=== PATIENT | female | born 2000 | race Caucasian/White ===

== ENCOUNTER 2018-01-15 17:25 | Outpatient (CLI) | payer MEDICAID, SELFPAY ==
[2018-01-15 18:00] VITALS: BMI 25.9
[2018-01-15 18:07] LABS: Bacteria 0 SEEN /hpf (None Seen); Mucous, Urine 0 SEEN /hpf (<or=2+)
[2018-01-15 18:11] LABS: Color, Urine Yellow (Yellow); Glucose, Dipstick Normal (Normal); Ketone-Dipstick Negative (Negative); Leukocyte Esterase-Dipstick 500 /ul (Negative); Nitrite-Dipstick Negative (Negative); Occult Blood-Urine 10 /ul (Negative); Protein-Dipstick Negative (Negative); Specific Gravity, Urine 1.015 (1.002-1.030); Urine Bilirubin Dipstick Negative (Negative); Urine Clarity Clear (Clear); Urine Urobilinogen Normal (Normal)
[2018-01-15 18:17] LABS: White Blood Cells 5-10 SEEN /hpf (0-5)
[2018-01-15 18:18] LABS: Red Blood Cells-Urine 0 SEEN /hpf (0-5); Squamous Epithelial Cells - UA 0-5 SEEN /hpf (5-10)
[2018-01-15] MEDS: Lactated Ringers 1,000 ML 999 ML IV (18:40)
[2018-01-15 20:12] LABS: Hematocrit 33.2 % (37-47); Hemoglobin 10.7 g/dl (12.0-15.0); Mean Corp Hgb Conc 32.2 g/gl (32-36); Mean Platelet Vol. 11.5 fl (6.2-12.0); Platelet Count 265 K/mm3 (150-450); RBC Distribution Width CV 12.5 % (11.6-14.6); RBC Distribution Width SD 40.5 fl (35.1-43.9); Red Blood Count 3.69 M/mm3 (4.2-5.4); White Blood Count 14.2 K/mm3 (4.4-11.0)
[2018-01-15 20:13] LABS: Scan Indicated on CBC? Y/N NO
[2018-01-15] MEDS: Betamethasone/Betamethasone 30 MG/5 ML Vial 12 MG IM (20:22)
[2018-01-15] MEDS: Lactated Ringers 1,000 ML 50 ML IV (23:44)
[2018-01-16] MEDS: Clindamycin 900 MG/50 ML BAG 75 MG IV (01:25)
--- NOTE | 2018-01-16 07:32 | PCM.PN.OB ---
Subjective: Contractions less strong and much less frequent today. Objective: Afeb VSS - Physical Exam General: Alert, Oriented x3, Cooperative, No apparent distress Lungs: Clear to auscultation, Normal air movement Cardiovascular: Regular rate, Regular Rhythm Abdomen: Soft, Non Tender, Non-Distended, Gravid, Appropriate for Gestational Age Extremities: No edema Skin: No rashes Neurological: Neuro grossly intact Psych/Mental Status: Normal Affect Comment: CE 3 cm unchanged Weight: 142 lb 3.17 oz Body Mass Index (BMI) 25.9 Laboratory Tests Past 24 Hrs 01/15/18 01/15/18 01/15/18 18:00 18:40 18:40 WBC 14.2 H RBC 3.69 L Hgb 10.7 L Hct 33.2 L MCV 90.0 MCH 29.0 MCHC 32.2 RDW 12.5 RDW Differential 40.5 Plt Count 265 MPV 11.5 Urine Color Yellow Urine Clarity Clear Urine pH 6.0 Ur Specific [place] 1.015 Urine Protein Negative Urine Glucose (UA) Normal Urine Ketones Negative Urine Occult Blood 10 H Urine Nitrite Negative Urine Bilirubin Negative Urine Urobilinogen Normal Ur Leukocyte Esterase 500 H Urine RBC 0 SEEN Urine WBC 5-10 SEEN Ur Squamous Epith Cells 0-5 SEEN Urine Bacteria 0 SEEN Urine Mucus 0 SEEN Group B Strep DNA Specimen Comment Blood Type A POSITIVE Antibody Screen NEGATIVE 01/15/18 20:10 WBC RBC Hgb Hct MCV MCH MCHC RDW RDW Differential Plt Count MPV Urine Color Urine Clarity Urine pH Ur Specific [place] Urine Protein Urine Glucose (UA) Urine Ketones Urine Occult Blood Urine Nitrite Urine Bilirubin Urine Urobilinogen Ur Leukocyte Esterase Urine RBC Urine WBC Ur Squamous Epith Cells Urine Bacteria Urine Mucus Group B Strep DNA Cancelled Specimen Comment Cancelled Blood Type Antibody Screen Assessment/Plan Was given celestone last night. No change in cervical exam overnight. Will discharge home today and have return for celestone injection tonight or will return if labor symptoms increase.
--- NOTE | 2018-01-16 07:52 | OB.TRI.NOTE ---
History of Present Illness Date of Service: 01/16/18 Was patient seen by the physician?: Yes Reason For Visit: LABOR AND DELIVERY Date of Service: 01/16/18 Final SHUBHAM: 02/18/18 Gestational age: 35 Weeks and 2 Days History of Present Illness: Contractions. Home Medications Medication Instructions Recorded Ferrous Sulfate [Ferrous Sulfate] 1 tab PO BID 04/11/15 Ferrous Sulfate 325 mg PO BIDCM #60 tablet 04/14/15 Allergies amoxicillin [Amoxicillin] Allergy (Verified 04/11/15 23:19) Hives cephalexin Allergy (Verified 01/15/18 18:11) Hives Penicillins Allergy (Verified 04/11/15 23:19) Hives Physical Exam General: Alert, Oriented x3, Cooperative, No apparent distress Cardiovascular: Regular rate, Regular Rhythm Lungs: Clear to auscultation, Normal air movement Abdomen: Soft, Non Tender, Non-Distended, Gravid, Appropriate for Gestational Age Extremities:: No edema Estimated gestational size: Appropriate for gestational size Presentation: Cephalic Cervix Dilation (cm): 3 Station: -2 Effacement (%): 50 NST - FHR Rate Baby A Baseline: 130s Variability:: Moderate Accelerations:: 15 x 15 Decelerations:: None NST Reactive:: Yes, Appropriate for gestational age FHR Category:: Category I Uterine Activity:: now q 10-12 minutes Impression/Plan Admitted for r/o PTL. No signs of SROM. Cervix initially changed but no private branch exchange service adviser the last 12 hours. Given celestone IM as precaution. Discharged home with precautions. [facility]
== END 2018-01-16 07:35 | disposition home or self-care (01) ==
LOC: WPOUT 17:34 → WP 17:34
PROVIDERS: Family Provider Student in an Organized Health Care Education/Training Program; PCP Student in an Organized Health Care Education/Training Program; Visit Provider Obstetrics & Gynecology
DX: Z34.93 Encounter for supervision of normal pregnancy, unspecified, third trimester (principal); Z3A.35 35 weeks gestation of pregnancy
CPT/HCPCS: 96360; 96361 ×4; 36415; 59025; 59050; 81001; 85027; 86850; 86900; 96372; 99218; J7120; G0378; J0702

== ENCOUNTER 2018-01-16 20:05 | Outpatient (CLI) | payer OTHER, BC, SELFPAY ==
[2018-01-16 20:13] VITALS: BMI 26.6
[2018-01-16] MEDS: Betamethasone/Betamethasone 30 MG/5 ML Vial 12.5 MG IM (20:25)
--- NOTE | 2018-02-02 08:06 | OB.TRI.NOTE ---
History of Present Illness Date of Service: 01/16/18 Was patient seen by the physician?: No Reason For Visit: CELESTONE SHOT Date of Service: 01/16/18 Final SHUBHAM: 02/17/18 Gestational age: 37 Weeks and 6 Days History of Present Illness: On date of service was [id number] Home Medications Medication Instructions Recorded Ferrous Sulfate [Ferrous Sulfate] 1 tab PO BID 04/11/15 Ferrous Sulfate 325 mg PO BIDCM #60 tablet 04/14/15 Allergies amoxicillin [Amoxicillin] Allergy (Verified 01/16/18 20:17) Hives cephalexin Allergy (Verified 01/16/18 20:17) Hives Penicillins Allergy (Verified 01/16/18 20:17) Hives Physical Exam General: Alert, Oriented x3, Cooperative, No apparent distress Cardiovascular: Regular rate, Regular Rhythm Lungs: Clear to auscultation, Normal air movement Abdomen: Soft, Non Tender, Non-Distended, Gravid, Appropriate for Gestational Age Extremities:: No edema Estimated gestational size: Appropriate for gestational size Presentation: Cephalic Cervix Dilation (cm): 2 NST - FHR Rate Baby A Baseline: 140s Variability:: Moderate Accelerations:: 15 x 15 Decelerations:: None NST Reactive:: Yes FHR Category:: Category I Impression/Plan Admitted for second celestone injection to promote lung majority in patient at risk for delivery.
== END 2018-01-16 20:40 | disposition home or self-care (01) ==
LOC: WPOUT 20:10 → WP 20:11
PROVIDERS: Family Provider Student in an Organized Health Care Education/Training Program; PCP Student in an Organized Health Care Education/Training Program; Visit Provider Obstetrics & Gynecology
DX: Z34.93 Encounter for supervision of normal pregnancy, unspecified, third trimester (principal); Z3A.35 35 weeks gestation of pregnancy
CPT/HCPCS: 96372; 99218; G0378; J0702

== ENCOUNTER → 2018-01-20 16:05 | Outpatient (CLI) | payer OTHER, BC, MEDICAID, SELFPAY ==
[2018-01-20 18:18] LABS: Group B Strep DNA By PCR Negative (Negative); Internal Control PASS; Probe Check PASS; Specimen Processing Control PASS
== END ==
PROVIDERS: Visit Provider Obstetrics & Gynecology
DX: Z36.85 Encounter for antenatal screening for Streptococcus B (principal)
CPT/HCPCS: 87081; 87653

== ENCOUNTER 2018-02-06 08:30 | Inpatient (IN) | payer OTHER, BC, MEDICAID, SELFPAY ==
[2018-02-06 07:50] VITALS: BMI 27.0
--- NOTE | 2018-02-06 08:19 | NURSING ---
patient planning to pump exclusively states she would attempt to latch him the first couple days if comfortable
[2018-02-06] MEDS: Lactated Ringers 1,000 ML 50 ML IV ×2 (08:55→09:50)
[2018-02-06 09:16] LABS: Hematocrit 33.7 % (37-47); Hemoglobin 10.8 g/dl (12.0-15.0); Mean Corpuscular Hgb 28.3 pg (27.0-32.0); Mean Corpuscular Volume 88.2 fL (81-99); Platelet Count 240 K/mm3 (150-450); RBC Distribution Width CV 12.8 % (11.6-14.6); RBC Distribution Width SD 41.3 fl (35.1-43.9); Red Blood Count 3.82 M/mm3 (4.2-5.4); White Blood Count 13.8 K/mm3 (4.4-11.0)
[2018-02-06 09:20] LABS: Scan Indicated on CBC? Y/N NO
[2018-02-06] MEDS: Oxytocin 30 units/NS 500 ml 30 UNITS/500 ML IV.SOLN 334 UNITS IV (15:05)
[2018-02-06] MEDS: Oxytocin 30 units/NS 500 ml 30 UNITS/500 ML IV.SOLN 167 UNITS IV (15:35)
[2018-02-06 17:47] VITALS: BP 107/60; PULSE 94; RESP 20; TEMP 36.3
--- NOTE | 2018-02-06 17:52 | PCM.OB.VAG ---
Vaginal Delivery Maternal Presentation: Active Labor Amniotic Membrane Rupture Type: Artificial Amniotic Fluid Description: Clear Final SHUBHAM: 02/17/18 Final SHUBHAM Source: US <20 weeks Gestational age: 38 Weeks and 3 Days Date of Procedure: 02/06/18 Pre-Operative Diagnosis: IUP Post-Operative Diagnosis: IUP Surgery/ Procedure Performed: Spontaneous Vaginal Delivery Type of Anesthesia: Epidural Description of Procedure: Spontaneous vaginal delivery of a viable female infant with Apgars of 8/9 and an occiput anterior presentation with clear amniotic fluid and normal three-vessel placenta. No episiotomy. Second-degree midline laceration repaired in layers with 3-0 Rapide suture under epidural. Sponge counts okay. Delivery physician: Pito Chaves MD. Presentation: Vertex Placental Delivery Description: Spontaneous Placenta Disposition: [facility] Cord Vessel Description: 3 Vessels Cord Gases drawn per routine: ABG Cord Entanglement: None Estimated Blood Loss: 250 cc A gender: Female (1 minute): 8 (5 minute): 9 Episiotomy Description: None Laceration: Midline, Perineal Extension/lac, 2nd degree Medications given after delivery: IV Pitocin Complications: None
--- NOTE | 2018-02-06 17:55 | OP.PCM_ITS ---
Vaginal Delivery Maternal Presentation: Active Labor Amniotic Membrane Rupture Type: Artificial Amniotic Fluid Description: Clear Final SHUBHAM: 02/17/18 Final SHUBHAM Source: US <20 weeks Gestational age: 38 Weeks and 3 Days Date of Procedure: 02/06/18 Pre-Operative Diagnosis: IUP Post-Operative Diagnosis: IUP Surgery/ Procedure Performed: Spontaneous Vaginal Delivery Type of Anesthesia: Epidural Description of Procedure: Spontaneous vaginal delivery of a viable female infant with Apgars of 8/9 and an occiput anterior presentation with clear amniotic fluid and normal three- vessel placenta. No episiotomy. Second-degree midline laceration repaired in layers with 3-0 Rapide suture under epidural. Sponge counts okay. Delivery physician: Pito Chaves MD. Presentation: Vertex Placental Delivery Description: Spontaneous Placenta Disposition: [facility] Cord Vessel Description: 3 Vessels Cord Gases drawn per routine: ABG Cord Entanglement: None Estimated Blood Loss: 250 cc A gender: Female (1 minute): 8 (5 minute): 9 Episiotomy Description: None Laceration: Midline, Perineal Extension/lac, 2nd degree Medications given after delivery: IV Pitocin Complications: None
--- NOTE | 2018-02-06 17:55 | PCM.DCVAG ---
Discharge Diet: No Restrictions Discharge Activity: May Shower, May Take a Tub Bath May resume sexual activity in: 4-6 weeks Additional Activity Instructions:: Nothing in the vagina for 4-6 weeks. You may return to work/school in 6 weeks. Call your doctor if you observe: Fever of 101 or Higher, Inability to urinate, Inability to have a bowel movement, Using more than one pad per hour Additional Instructions: If you experience any of the following, contact your healthcare provider. Bleeding that soaks a pad every hour for 2 hours Unrelieved incision or abdominal pain Swelling, redness, discharge or bleeding from your incision or episiotomy site Your incision begins to separate Problems urinating (including inability to urinate or burning while urinating). Visual changes Severe headache Flu-like symptoms Pain or redness in one of both of your breasts Pain, warmth, tenderness or swelling in your legs, especially the calf area Frequent nausea and vomiting Symptoms of depression or anxiety If you experience any of the following, call 911 or go to the nearest Emergency Room. Chest pain Problems breathing Seizure activity Partial or complete paralysis of a body part, slurred speech, weakness or drooping of the face, or a sudden inability to walk or hold your balance Allergies/Adverse Reactions: Allergies amoxicillin [Amoxicillin] Allergy (Verified 02/06/18 07:51) Hives cephalexin Allergy (Verified 02/06/18 07:51) Hives Penicillins Allergy (Verified 02/06/18 07:51) Hives Please Follow Up With: Pito Chaves MD - [phone] When: Call to make an appointment with your doctor in 6 weeks. . Primary Care Physician: Keith Vides DO [Primary Care Provider] -
--- NOTE | 2018-02-06 17:56 | DCINST_ITS ---
Discharge Diet: No Restrictions Discharge Activity: May Shower, May Take a Tub Bath May resume sexual activity in: 4-6 weeks Additional Activity Instructions:: Nothing in the vagina for 4-6 weeks. You may return to work/school in 6 weeks. Call your doctor if you observe: Fever of 101 or Higher, Inability to urinate, Inability to have a bowel movement, Using more than one pad per hour Additional Instructions: If you experience any of the following, contact your healthcare provider. * Bleeding that soaks a pad every hour for 2 hours * Unrelieved incision or abdominal pain * Swelling, redness, discharge or bleeding from your incision or episiotomy site * Your incision begins to separate * Problems urinating (including inability to urinate or burning while urinating) . * Visual changes * Severe headache * Flu-like symptoms * Pain or redness in one of both of your breasts * Pain, warmth, tenderness or swelling in your legs, especially the calf area * Frequent nausea and vomiting * Symptoms of depression or anxiety If you experience any of the following, call 911 or go to the nearest Emergency Room. * Chest pain * Problems breathing * Seizure activity * Partial or complete paralysis of a body part, slurred speech, weakness or drooping of the face, or a sudden inability to walk or hold your balance Allergies/Adverse Reactions: Allergies amoxicillin [Amoxicillin] Allergy (Verified 02/06/18 07:51) Hives cephalexin Allergy (Verified 02/06/18 07:51) Hives Penicillins Allergy (Verified 02/06/18 07:51) Hives Please Follow Up With: Pito Chaves MD - [phone] When: Call to make an appointment with your doctor in 6 weeks. . Primary Care Physician: Keith Vides DO [Primary Care Provider] -
[2018-02-06 20:40] VITALS: BP 109/60; PULSE 94; RESP 16; TEMP 37.1; O2SAT 98
[2018-02-06 23:20] VITALS: BP 119/57; PULSE 68; RESP 16; TEMP 36.3; O2SAT 98
[2018-02-06] MEDS: Acetaminophen 500 MG Tablet 1000 MG PO (23:31)
[2018-02-07 03:43] VITALS: BP 110/69; PULSE 76; RESP 16; TEMP 36.2; O2SAT 97
[2018-02-07] MEDS: Ibuprofen 600 MG Tablet PO ×2 (03:51→12:14)
[2018-02-07 08:30] VITALS: BP 97/58; PULSE 80; RESP 16; TEMP 36.4; O2SAT 96
--- NOTE | 2018-02-07 08:44 | PCM.PN.OB ---
Objective: Patient without complaints. Breast-feeding going well. Wants to go home. - Physical Exam Vital Signs AF, VSS Temp Pulse Resp BP Pulse Ox 97.2 F L 76 16 110/69 97 02/07/18 03:43 02/07/18 03:43 02/07/18 03:43 02/07/18 03:43 02/07/18 03:43 Oxygen Delivery Method Room Air Weight: 147 lb 11.355 oz Body Mass Index (BMI) 27.0 Intake and Output for Last 24 Hours 02/05/18 02/06/18 02/07/18 23:59 23:59 23:59 Intake Total 3100 / 3100 Output Total 2100 / 2100 Balance 1000 / 1000 Laboratory Tests Past 24 Hrs 02/06/18 02/06/18 08:55 08:55 WBC 13.8 H RBC 3.82 L Hgb 10.8 L Hct 33.7 L MCV 88.2 MCH 28.3 MCHC 32.0 RDW 12.8 RDW Differential 41.3 Plt Count 240 MPV 11.0 Blood Type A POSITIVE Antibody Screen NEGATIVE Assessment/Plan Doing well. Will release to home with routine instructions.
[2018-02-07 12:20] VITALS: BP 106/64; PULSE 83; RESP 14; TEMP 36.6
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
[2018-02-07 16:40] VITALS: BP 108/66; PULSE 96; RESP 16; TEMP 36.4
--- NOTE | 2018-02-20 15:36 | CASEMGMT ---
Social Work - Labor and Delivery Referral made to [facility] via the [facility]'s secure online web based system. -ASAD Kemp, PLASTICS FITTER
== END 2018-02-07 17:55 | disposition home or self-care (01) | DRG 775 ==
LOC: WPOUT 08:41
PROVIDERS: Admitting Provider Obstetrics & Gynecology; Family Provider Student in an Organized Health Care Education/Training Program; PCP Student in an Organized Health Care Education/Training Program; Visit Provider Obstetrics & Gynecology
DX: O70.1 Second degree perineal laceration during delivery (principal); Z37.0 Single live birth; Z3A.38 38 weeks gestation of pregnancy
CPT/HCPCS: 59025; 59050; 85027; 86850; 86900; 99218; J7120; G0378

== ENCOUNTER 2018-04-28 22:16 | Emergency (ER) | payer BC, MEDICAID, SELFPAY ==
[2018-04-28 22:16] VITALS: BP 104/70; PULSE 134; RESP 15; TEMP 37.7; BMI 20.9
--- NOTE | 2018-04-28 22:40 | RAD_ITS ---
XR Chest 2 Views INDICATION: flu like symptoms, cough COMPARISON: None FINDINGS: Heart size and pulmonary vascularity are within normal limits. The lungs are clear without evidence of airspace consolidation or pleural effusion. The osseous structures are grossly unremarkable. RAD/Chest PA and Lateral IMPRESSION: No radiographic evidence of acute intrathoracic disease. at 2331 Reported and signed by: Va Tucker MD Electronically Signed: Va Tucker MD at 23:29 EDT Tel , Service support ,
--- NOTE | 2018-04-28 22:44 | ED.DCSUM_ITS ---
- ER Visit Summary Date of Service: 04/28/18 Chief Complaint: Fever, short of breath, body aches History of Present Illness: The patient is a 17 F who states this evening she developed cough and congestion. She has occasional sputum production. She has body aches and vomited twice. She states her temperature was 101.6 at home. She did not take anything for it. She has had no diarrhea or urinary symptoms. Patient states that a baby 2 months ago and has not yet had a period since then. Physical Examination: Blood pressure is 104/70, temperature 99.8, heart rate 134 , respiratory rate 15. Head neck examination is grossly unremarkable. Heart is tachycardic and regular. Lung sounds are clear. Abdomen is soft nontender. Hypoactive bowel sounds are noted throughout. Extremity examination is unremarkable. Test Results: CBC reveals normal white count. Chemistry studies normal. Urinalysis shows 500 leukocyte esterase with 10-25 white blood cells, however 0 bacteria is noted. Patient has not had symptoms of UTI. test is negative. Influenza swab is negative. Two-view chest x-ray shows no acute disease. Emergency Department Course and Treatment: Patient was given IV fluids, Toradol , and Zofran. On repeat evaluation she feels significantly improved. Heart rate is currently 106. Patient will use Tylenol and ibuprofen. She will increase fluids. We will send urine for culture, but not start her on antibiotics at this time. Treatment Plan: [] Disposition: Discharge Impression: Viral syndrome This note was generated with [employer] dictation software. It may contain incorrect words, spelling, and punctuation that were not noted in review of the chart prior to signing ED Disposition - Plan for ED Patient: Chief Complaint: General Illness Referrals: Keith Vides DO [Primary Care Provider] -
[2018-04-28 22:56] LABS: Bacteria 0 SEEN /hpf (None Seen); Mucous, Urine 0 SEEN /hpf (<or=2+); Red Blood Cells-Urine 0 SEEN /hpf (0-5)
[2018-04-28 23:02] LABS: Color, Urine Yellow (Yellow); Glucose, Dipstick Normal (Normal); Ketone-Dipstick 15 mg/dl (Negative); Leukocyte Esterase-Dipstick 500 /ul (Negative); Nitrite-Dipstick Negative (Negative); Occult Blood-Urine Negative /ul (Negative); Protein-Dipstick 15 mg/dl (Negative); Specific Gravity, Urine 1.015 (1.002-1.030); Urine Bilirubin Dipstick Negative (Negative); Urine Clarity Sl. Cloudy (Clear); Urine Urobilinogen Normal (Normal)
[2018-04-28] MEDS: 0.9% Normal Saline 1,000 ML 1000 ML IV (23:02)
[2018-04-28] MEDS: Ondansetron 4 MG/2 ML Vial IV (23:03)
[2018-04-28] MEDS: Ketorolac 30 MG/ML Syringe IV (23:03)
[2018-04-28 23:09] LABS: Amorphous Sediment 1+ URATE; Squamous Epithelial Cells - UA 0-5 SEEN /hpf (5-10); White Blood Cells 10-25 SEEN /hpf (0-5)
[2018-04-28 23:09] LABS: Absolute Lymphocyte Count 1.36 X10^3/ul (0.83-4.51); Absolute Neutrophil Count 8.5 X10^3/uL (2.0-7.7); Basophil# 0.01 X10^3/uL; Basophil% 0.1 % (0-1); Eosinophil# 0.03 X10^3/uL; Eosinophils% 0.3 % (0-5); Hemoglobin 12.2 g/dl (12.0-15.0); Lymphocyte # 1.36 X10^3/ul (4.0); Lymphocyte % 12.3 % (19-41); Mean Corpuscular Hgb 27.8 pg (27.0-32.0); Mean Corpuscular Volume 84.3 fL (81-99); Mean Platelet Vol. 10.4 fl (6.2-12.0); Monocyte# 1.12 X10^3/uL; Monocyte% 10.2 % (0-10); Neutrophil # 8.48 X10^3/uL (2.7-7.7); Neutrophil % 76.9 % (47-70); POSITIVE COUNT NO; POSITIVE DIFFERENTIAL NO; POSITIVE MORPHOLOGY NO; Platelet Count 192 K/mm3 (150-450); RBC Distribution Width CV 14.8 % (11.6-14.6); RBC Distribution Width SD 46.1 fl (35.1-43.9); Red Blood Count 4.39 M/mm3 (4.2-5.4)
[2018-04-28 23:22] LABS: Anion Gap 9 (5-15); BUN 14 mg/dL (7-18); BUN/Creat Ratio 14.8 RATIO (10-20); Calcium,Total 8.7 mg/dL (8.5-10.1); Chloride 106 mmol/L (98-107); Creatinine, Serum 0.95 mg/dL (0.55-1.02); EST Glomerular Filtration Rate 80 mL/min (>60); Est Glom Filt Rate - Afr Amer 97 mL/min (>60); Estimated Creatinine Clearance 75.33 ml/min; Glucose 92 mg/dL (74-106); Potassium 3.5 mmol/L (3.5-5.1); Sodium Level 137 mmol/L (136-145)
[2018-04-28 23:55] LABS: Pregnancy, Serum, hCG Quali. NEGATIVE Negative (0-9 Nonpreg)
--- NOTE | 2018-04-29 00:26 | ED.DEP ---
ED Disposition - Plan for ED Patient: Disposition: Home or Assisted Living Chief Complaint: General Illness Instructions: ED Viral Syndrome Prescriptions: Ondansetron [Zofran Odt] 4 mg PO Q8H PRN PRN #10 tablet PRN Reason: Nausea Referrals: Keith Vides DO [Primary Care Provider] - 3-5 Days if not improving
[2018-04-29 00:37] VITALS: BP 99/58; PULSE 104; RESP 20; O2SAT 98
== END 2018-04-29 00:38 | disposition home or self-care (01) ==
PROVIDERS: Emergency Provider Emergency Medicine; Family Provider Student in an Organized Health Care Education/Training Program; PCP Student in an Organized Health Care Education/Training Program
DX: B34.9 Viral infection, unspecified (principal); R50.9 Fever, unspecified; R05 Cough; R11.2 Nausea with vomiting, unspecified; R09.81 Nasal congestion; M79.1 Myalgia; Z72.0 Tobacco use
CPT/HCPCS: 71046; 80048; 81001; 84703; 85025; 87804; 96361; 96374; 96375; 99285; J7030; J2405

== ENCOUNTER → 2019-02-12 14:55 | Outpatient (CLI) | payer OTHER, BC, MEDICAID, SELFPAY ==
[2019-02-12 18:11] LABS: hCG Titer Quant., Serum 3938 mIU/mL (<9 non-preg)
== END ==
PROVIDERS: Family Provider Student in an Organized Health Care Education/Training Program; PCP Student in an Organized Health Care Education/Training Program; Visit Provider Obstetrics & Gynecology
DX: N91.2 Amenorrhea, unspecified (principal)
CPT/HCPCS: 36415; 84702

== ENCOUNTER → 2019-02-15 14:09 | Outpatient (CLI) | payer OTHER, BC, MEDICAID, SELFPAY ==
[2019-02-15 16:19] LABS: hCG Titer Quant., Serum 9612 mIU/mL (<9 non-preg)
== END ==
PROVIDERS: Visit Provider Obstetrics & Gynecology
DX: N91.2 Amenorrhea, unspecified (principal)
CPT/HCPCS: 36415; 84702

== ENCOUNTER → 2019-03-02 17:27 | Outpatient (CLI) | payer OTHER, BC, MEDICAID, SELFPAY ==
[2019-03-02 19:42] LABS: Chlamydia Trachomatis by PCR Negative (Negative); Neisserai gonorrhoeae by PCR Negative (Negative); Probe Check PASS; Sample Adequacy Control PASS; Specimen Processing Control PASS
== END ==
PROVIDERS: Referring Provider Obstetrics & Gynecology; Visit Provider Obstetrics & Gynecology
DX: Z11.3 Encounter for screening for infections with a predominantly sexual mode of transmission (principal)
CPT/HCPCS: 87491; 87591

== ENCOUNTER → 2019-03-16 14:25 | Outpatient (CLI) | payer OTHER, BC, SELFPAY ==
[2019-03-16 15:05] LABS: Color, Urine Yellow (Yellow); Glucose, Dipstick Normal (Normal); Ketone-Dipstick Negative (Negative); Leukocyte Esterase-Dipstick 100 /ul (Negative); Nitrite-Dipstick Negative (Negative); Occult Blood-Urine Negative /ul (Negative); Protein-Dipstick Negative (Negative); Specific Gravity, Urine 1.015 (1.002-1.030); Urine Bilirubin Dipstick Negative (Negative); Urine Clarity Clear (Clear); Urine Urobilinogen Normal (Normal)
[2019-03-16 15:09] LABS: Absolute Lymphocyte Count 1.93 X10^3/ul (0.83-4.51); Absolute Neutrophil Count 5.2 X10^3/uL (2.0-7.7); Basophil# 0.01 X10^3/uL; Basophil% 0.1 % (0-1); Eosinophil# 0.04 X10^3/uL; Eosinophils% 0.5 % (0-5); Hematocrit 37.5 % (37-47); Hemoglobin 12.9 g/dl (12.0-15.0); Lymphocyte # 1.93 X10^3/ul (4.0); Lymphocyte % 25.3 % (19-41); Mean Corp Hgb Conc 34.4 g/gl (32-36); Mean Corpuscular Hgb 29.8 pg (27.0-32.0); Mean Corpuscular Volume 86.6 fL (81-99); Mean Platelet Vol. 10.2 fl (6.2-12.0); Monocyte# 0.43 X10^3/uL; Monocyte% 5.6 % (0-10); Neutrophil # 5.21 X10^3/uL (2.7-7.7); Neutrophil % 68.4 % (47-70); Platelet Count 242 K/mm3 (150-450); RBC Distribution Width CV 12.5 % (11.6-14.6); Red Blood Count 4.33 M/mm3 (4.2-5.4); White Blood Count 7.6 K/mm3 (4.4-11.0)
[2019-03-16 15:14] LABS: POSITIVE COUNT NO; POSITIVE DIFFERENTIAL NO; POSITIVE MORPHOLOGY NO
[2019-03-16 15:30] LABS: Thyroid Stim Hormone (TSH) 0.53 uIU/mL (0.358-3.74)
[2019-03-16 15:36] LABS: COTININE Drug Screen Positive (<200 ng/mL)
[2019-03-16 15:49] LABS: Amphetamine Urine VISTA NEGATIVE (<1000 ng/mL); Barbiturate Urine VISTA NEGATIVE (< 200 ng/mL); Benzodiazepine Urine VISTA NEGATIVE (< 200 ng/mL); Cocaine Urine VISTA NEGATIVE (< 300 ng/mL); Ecstacy Urine VISTA NEGATIVE (< 500 ng/mL); Methadone Urine VISTA NEGATIVE (< 300 ng/mL); PCP Urine VISTA NEGATIVE (< 25 ng/mL); THC Urine VISTA NEGATIVE (< 50 ng/mL); Vista UDS pH Range 6
[2019-03-16 18:20] LABS: HIV - WCH Non-Reactive (Nonreactive); Rubella IgG 190.7 IU/mL
[2019-03-19 11:10] LABS: HEPATITIS B SURFACE AG Negative (Negative); Hep C Antibodies <0.1 s/co ratio (0.0-0.9)
[2019-03-23 02:51] LABS: Prenatal RPR NONREACTIVE (NONREACTIVE)
== END ==
PROVIDERS: Visit Provider Obstetrics & Gynecology
DX: Z34.81 Encounter for supervision of other normal pregnancy, first trimester (principal)
CPT/HCPCS: 36415; 80307; 81002; 84443; 85025; 86703; 86762; 86803; 87340

== ENCOUNTER → 2019-08-24 14:12 | Outpatient (CLI) | payer SELFPAY ==
[2019-08-24 16:15] LABS: Hemoglobin 10.7 g/dL (12.0-15.0); Mean Corp Hgb Conc 32.4 g/dL (32-36); Mean Corpuscular Hgb 30.6 pg (27.0-32.0); Mean Corpuscular Volume 94.3 fL (81-99); Mean Platelet Vol. 10.4 fl (6.2-12.0); Platelet Count 219 K/mm3 (150-450); RBC Distribution Width CV 12.2 % (11.6-14.6); RBC Distribution Width SD 42.5 fl (35.1-43.9); White Blood Count 9.9 K/mm3 (4.4-11.0)
[2019-08-24 16:20] LABS: Glucose Challenge Gest 1H 50g 105 mg/dL (70-140)
== END ==
PROVIDERS: Visit Provider Obstetrics & Gynecology
DX: Z34.83 Encounter for supervision of other normal pregnancy, third trimester (principal)
CPT/HCPCS: 36415; 82950; 85027

== ENCOUNTER → 2019-09-21 16:40 | Outpatient (CLI) | payer SELFPAY | LOC: LABSPEC 16:42 | PROVIDERS: Visit Provider Advanced Practice Midwife | DX: Z36.85 Encounter for antenatal screening for Streptococcus B (principal) | CPT/HCPCS: 87081 ==

== ENCOUNTER → 2019-09-26 15:43 | Outpatient (CLI) | payer SELFPAY ==
[2019-09-26 16:34] LABS: Amphetamine Urine VISTA NEGATIVE (<1000 ng/mL); Barbiturate Urine VISTA NEGATIVE (< 200 ng/mL); Benzodiazepine Urine VISTA NEGATIVE (< 200 ng/mL); Cocaine Urine VISTA NEGATIVE (< 300 ng/mL); Ecstacy Urine VISTA NEGATIVE (< 500 ng/mL); Methadone Urine VISTA NEGATIVE (< 300 ng/mL); PCP Urine VISTA NEGATIVE (< 25 ng/mL); THC Urine VISTA NEGATIVE (< 50 ng/mL); Vista UDS pH Range 7
== END ==
LOC: LABSPEC 15:45
PROVIDERS: Referring Provider Obstetrics & Gynecology; Visit Provider Obstetrics & Gynecology
DX: Z34.83 Encounter for supervision of other normal pregnancy, third trimester (principal)
CPT/HCPCS: 80307